=== PATIENT | female | born 1940 | race Caucasian/White ===

== ENCOUNTER → 2016-06-15 | Outpatient (CLI) | payer OTHER, MEDICARE | LOC: BMCIMAGING 09:25 | DX: Z12.31 Encounter for screening mammogram for malignant neoplasm of breast (principal) | CPT/HCPCS: G0202 ==

== ENCOUNTER → 2017-06-19 | Outpatient (CLI) | payer OTHER, MEDICARE | LOC: BMCIMAGING 13:41 | PROVIDERS: ATTEND Internal Medicine | DX: Z12.31 Encounter for screening mammogram for malignant neoplasm of breast (principal); Z13.820 Encounter for screening for osteoporosis; M85.89 Other specified disorders of bone density and structure, multiple sites; E07.9 Disorder of thyroid, unspecified; Z78.0 Asymptomatic menopausal state; Z79.890 Hormone replacement therapy ==

== ENCOUNTER → 2017-08-31 | Outpatient (CLI) | payer OTHER, MEDICARE | LOC: BMCIMAGING 14:12 | PROVIDERS: ATTEND Physician Assistant | DX: M25.562 Pain in left knee (principal) ==

== ENCOUNTER → 2017-09-19 | Outpatient (CLI) | payer OTHER, MEDICARE | LOC: BMCIMAGING 16:31 | PROVIDERS: ATTEND Family Medicine | DX: M79.605 Pain in left leg (principal); M79.89 Other specified soft tissue disorders; Z87.828 Personal history of other (healed) physical injury and trauma ==

== ENCOUNTER → 2017-11-28 | Outpatient (CLI) | payer OTHER, MEDICARE | LOC: FIMAGING 12:03 | PROVIDERS: ATTEND Physical Medicine & Rehabilitation | DX: M23.322 Other meniscus derangements, posterior horn of medial meniscus, left knee (principal); M24.10 Other articular cartilage disorders, unspecified site; M22.42 Chondromalacia patellae, left knee; M71.22 Synovial cyst of popliteal space [Baker], left knee ==

== ENCOUNTER → 2018-02-08 | Outpatient (CLI) | payer OTHER, MEDICARE | LOC: BMCIMAGING 08:23 | PROVIDERS: ATTEND Emergency Medicine | DX: R10.13 Epigastric pain (principal) ==

== ENCOUNTER 2018-03-16 18:56 | Observation (INO) | payer OTHER, MEDICARE ==
[2018-03-16 20:29] LABS: PLATELET COUNT 306 10^3/uL (150-400)
[2018-03-16] MEDS ORDERED: oxyCODONE IR 5 MG TAB PO ONE (20:58)
[2018-03-16] MEDS ORDERED: METHOCARBAMOL 750 MG TAB PO ONE ×2 (20:58→21:01)
[2018-03-16] MEDS ORDERED: ACETAMINOPHEN 500 MG TAB PO ONE ×2 (20:58→21:01)
[2018-03-16] MEDS: ceFAZolin 2 GM/DEXTROSE 100 ML IV ONE ×2 (21:25→22:25)
[2018-03-16] MEDS ORDERED: CLINDAMYCIN 600 MG/DEXTROSE 50 ML IV ONE (21:55)
[2018-03-16] MEDS ORDERED: VANCOMYCIN HCL/NORMAL SALINE 250 ML IV ONE (21:55)
[2018-03-16] MEDS ORDERED: ONDANSETRON 4 MG/2 ML VIAL IVP PRN (22:18)
[2018-03-16] MEDS ORDERED: ONDANSETRON DISINTEGRATING 4 MG TAB PO PRN (22:18)
[2018-03-16] MEDS ORDERED: oxyCODONE IR 5 MG TAB PO PRN (22:18)
[2018-03-16] MEDS ORDERED: ACETAMINOPHEN 325 MG TAB PO PRN (22:18)
--- NOTE | 2018-03-16 23:31 | PDGENHP ---
History and Physical - Chief Complaint L knee redness - History of Present Illness 77 yo F w/ hx of hypothyroid and OA presents with L knee redness. She underwent L TKA on 03/12 at [facility]. She was discharged home on 03/14 without complication. Yesterday, however, she began to notice medial L knee redness. Today she noticed this was worsening so she came to the ED for evaluation. She denies fevers or chills. In the ED her surgeon at [facility] was contacted who recommended admission for IV antibiotics and observation. Dr. Gaines of [place] was consulted who recommended Vancomycin and Clindamycin for treatment. At the time of my evaluation the patient is well appearing and complaining only of mild L knee discomfort. She thinks the redness in her leg has already mildly improved. She is displaying no signs of sepsis at this time. Case discussed with ED YARI Vargas, records reviewed and summarized above. History Information - Allergies/Home Medication List Allergies/Adverse Reactions: meloxicam Allergy (Verified 03/16/18 18:58) Home Medications: Levothyroxine 03/16/18 [Last Taken Unknown] Nexium 03/16/18 [Last Taken Unknown] Percocet 5-325 mg Tablet 03/16/18 [Last Taken Unknown] Xarelto 03/16/18 [Last Taken Unknown] I have personally reviewed and updated: family history, medical history - Past Medical History Additional medical history: Hypothyroid - Surgical History Additional surgical history: L TKA 03/12/18 - Family History Positive for: cancer, CAD - Social History Smoking Status: Never smoked Review of Systems Review of Systems: ROS: 10pt was reviewed & negative except for what was stated in HPI & below Physical Exam Physical Exam: Temp Pulse Resp BP Pulse Ox 36.9 C 88 18 152/78 H 97 03/16/18 23:03 03/16/18 22:30 03/16/18 20:46 03/16/18 22:30 03/16/18 22:30 Constitutional: no apparent distress, uncomfortable Eyes: PERRL, EOMI Ears, Nose, Mouth, Throat: moist mucous membranes, no oral mucosal ulcers Cardiovascular: regular rate and rhythym, no murmur, rub, or gallop Respiratory: no respiratory distress, clear to auscultation Gastrointestinal: normoactive bowel sounds, soft, non-tender abdomen Skin: warm, other (Erythema, warmth medial L knee with proximal extension) Musculoskeletal: full muscle strength, no muscle tenderness, pain with ROM (L knee) Neurologic: AAOx3, CN II-XII Intact Psychiatric: interacting appropriately, not anxious Lab Data & Imaging Review 03/16/18 20:15 03/16/18 20:15 WBC 5.60 10^3/uL (3.80-9.50) 03/16/18 20:15 RBC 2.74 10^6/uL (4.18-5.33) L 03/16/18 20:15 Hgb 7.8 g/dL (12.6-16.3) L 03/16/18 20:15 Hct 23.4 % (38.0-47.0) L 03/16/18 20:15 MCV 85.4 fL (81.5-99.8) 03/16/18 20:15 MCH 28.5 pg (27.9-34.1) 03/16/18 20:15 MCHC 33.3 g/dL (32.4-36.7) 03/16/18 20:15 RDW 12.9 % (11.5-15.2) 03/16/18 20:15 Plt Count 306 10^3/uL (150-400) 03/16/18 20:15 MPV 9.0 fL (8.7-11.7) 03/16/18 20:15 Neut % (Auto) 70.4 % (39.3-74.2) 03/16/18 20:15 Lymph % (Auto) 18.4 % (15.0-45.0) 03/16/18 20:15 [place] % (Auto) 9.6 % (4.5-13.0) 03/16/18 20:15 Eos % (Auto) 0.9 % (0.6-7.6) 03/16/18 20:15 Baso % (Auto) 0.5 % (0.3-1.7) 03/16/18 20:15 Nucleat RBC Rel Count 0.0 % (0.0-0.2) 03/16/18 20:15 Absolute Neuts (auto) 3.94 10^3/uL (1.70-6.50) 03/16/18 20:15 Absolute Lymphs (auto) 1.03 10^3/uL (1.00-3.00) 03/16/18 20:15 Absolute Monos (auto) 0.54 10^3/uL (0.30-0.80) 03/16/18 20:15 Absolute Eos (auto) 0.05 10^3/uL (0.03-0.40) 03/16/18 20:15 Absolute Basos (auto) 0.03 10^3/uL (0.02-0.10) 03/16/18 20:15 Absolute Nucleated RBC 0.00 10^3/uL (0-0.01) 03/16/18 20:15 Immature Gran % 0.2 % (0.0-1.1) 03/16/18 20:15 Immature Gran # 0.01 10^3/uL (0.00-0.10) 03/16/18 20:15 ESR 38 MM/HR (0-30) H 03/16/18 20:15 Sodium 133 mEq/L (135-145) L 03/16/18 20:15 Potassium 3.6 mEq/L (3.5-5.2) 03/16/18 20:15 Chloride 103 mEq/L (97-110) 03/16/18 20:15 Carbon Dioxide 24 mEq/l (22-31) 03/16/18 20:15 Anion Gap 6 mEq/L (6-14) 03/16/18 20:15 BUN 14 mg/dL (7-23) 03/16/18 20:15 Creatinine 0.8 mg/dL (0.6-1.0) 03/16/18 20:15 Estimated GFR > 60 03/16/18 20:15 Glucose 127 mg/dL (70-100) H 03/16/18 20:15 Calcium 8.3 mg/dL (8.5-10.4) L 03/16/18 20:15 C-Reactive Protein 218.5 mg/L (<10.0) H 03/16/18 20:15 Imaging Review: Imaging Impressions Knee X-Ray 03/16/18 19:40 Impression: 1. Left total knee replacement in good position and alignment. 2. Soft tissue swelling around the left knee without evidence of gas. Assessment & Plan Assessment: 77 yo F w/ recent L TKA presents with cellulitis. Plan: 1. L knee cellulitis - S/p L TKA at [facility] on 03/12/18. She has no systemic symptoms of infection at this time including normal WBC. Her surgeons at [facility] were contacted who recommended admission at [facility] for IV antibiotics. - Admit for observation - ID consulted, Vancomycin and Clindamycin ordered per their recommendation - Blood cultures pending - APAP, Oxycodone PRN for pain 2. OA - S/p L TKA at [facility] on 03/12/18. On Xarelto 10 mg qD for DVT prophylaxis. - Continue prophylactic dose Xarelto pending reconciliation 3. Normocytic anemia - Hgb 7.8 on admission; per review of [facility] last Hgb on at time of discharge from [facility] was 9.7. Our records show Hgb was normal prior to surgery so likely a large part of this is due to blood loss from surgery. The patient tells me she had a drain in place after surgery with significant bloody discharge. She denies other signs of blood loss. - Will check ferritin to look for iron deficiency - Transfuse for Hgb<7 4. Hypothyroid - Continue LTX pending reconciliation Diet - Regular Code - Full Ppx - SCDs, Xarelto Dispo - Admit under observation status
--- NOTE | 2018-03-17 00:10 | EDPHY ---
H & P Stated Complaint: redness at incision site L knee surgery 4 days ago [facility] Time Seen by Provider: 03/16/18 19:11 HPI/ROS: Chief complaint: Possible infection at surgical site History of present illness: This is a 77-year-old female who presents to the emergency department concerned she might be developing an infection and a surgical site. Patient underwent a total left knee arthroplasty this last Sunday, approximately 5 days ago. She was discharged on . She states yesterday she developed some mild redness. Today a worsened. She presents to the emergency room for evaluation. In addition to redness or is mild soreness. She does not feel the pain the site of surgery has significantly changed from what she was feeling postoperatively. No report of fevers. No abnormal coolness or paresthesias in the leg. Review of systems: A 10 point review of systems was obtained and other than described above was negative - Medical/Surgical History Hx Asthma: No Hx Chronic Respiratory Disease: No Hx Diabetes: No Hx Cardiac Disease: No Hx Renal Disease: No Hx Cirrhosis: No Hx Alcoholism: No Hx HIV/AIDS: No Hx Splenectomy or Spleen Trauma: No Other PMH: hysterectomy, hypothyroid, skin ca, TKA, TIA - Social History Smoking Status: Never smoked - Physical Exam Exam: General Appearance: Alert, nontoxic. Eyes: Pupils equal and round no pallor or injection. ENT, Mouth: Mucous membranes moist. Respiratory: There are no retractions, lungs are clear to auscultation. Cardiovascular: Regular rate and rhythm. Gastrointestinal: Abdomen is soft and non tender, no masses, bowel sounds normal. Neurological: Alert and oriented x4. Sensation intact in the left leg. Skin: Surgical incision site does not have significant discharge. No dehiscence. There is mild erythema extending medially from the wound site to the medial aspect of the knee and up into the medial thigh. Mild warmth and tenderness. No induration or fluctuance. Musculoskeletal: Neck is supple non tender. Extremities are symmetrical, full range of motion. Psychiatric: Patient is oriented X 3, there is no agitation. Constitutional: Initial Vital Signs Temperature (C) 36.5 C 03/16/18 19:01 Heart Rate 81 03/16/18 19:01 Respiratory Rate 16 03/16/18 19:01 Blood Pressure 172/85 H 03/16/18 19:01 O2 Sat (%) 95 12/22/18 19:01 O2 Delivery Mode Room Air Allergies/Adverse Reactions: meloxicam Allergy (Verified 03/16/18 18:58) Home Medications: Medication Instructions Recorded Levothyroxine 03/16/18 Nexium 03/16/18 Percocet 5-325 mg Tablet 03/16/18 Xarelto 03/16/18 Medical Decision Making - Diagnostics Imaging Results: Imaging Impressions Knee X-Ray 03/16/18 19:40 Impression: 1. Left total knee replacement in good position and alignment. 2. Soft tissue swelling around the left knee without evidence of gas. Imaging: I viewed and interpreted images myself ED Course/Re-evaluation: Patient is discussed with my secondary supervising physician Dr. Lei Mei. Patient presents with redness and swelling status post a left total knee arthroplasty. She does appear to have a cellulitis. I have consulted with the on-call orthopedic surgeon at [facility] where the procedure was done, Dr. Perdomo. He recommended CBC, chemistry, CRP, ESR and x-ray. After evaluation he recommends admission to this hospital for IV antibiotics. He does not recommend that we tap the knee this evening. I did send pictures of the findings to him at his request by personal phone. This had been discussed with the patient prior to sending the photos, she reviewed the photos and was comfortable with them being sent this way. No identifying information was sent with them. I have consulted with Dr. Rigo Gaines of Infectious Disease, he recommends 1 g of vancomycin and 600 mg of clindamycin IV for initial treatment. He will consult on this patient. The plan has been discussed with the patient who voiced understanding and agreement with it. Differential Diagnosis: Included but not limited to cellulitis, surgical wound infection, joint infection - Data Points Laboratory Results: Laboratory Results 03/16/18 20:15 03/16/18 20:15 03/16/18 03/16/18 03/16/18 20:15 20:15 20:15 WBC 5.60 10^3/uL 10^3/uL (3.80-9.50) RBC 2.74 10^6/uL L 10^6/uL (4.18-5.33) Hgb 7.8 g/dL L g/dL (12.6-16.3) Hct 23.4 % L % (38.0-47.0) MCV 85.4 fL fL (81.5-99.8) MCH 28.5 pg pg (27.9-34.1) MCHC 33.3 g/dL g/dL (32.4-36.7) RDW 12.9 % % (11.5-15.2) Plt Count 306 10^3/uL 10^3/uL (150-400) MPV 9.0 fL fL (8.7-11.7) Neut % (Auto) 70.4 % % (39.3-74.2) Lymph % (Auto) 18.4 % % (15.0-45.0) [place] % (Auto) 9.6 % % (4.5-13.0) Eos % (Auto) 0.9 % % (0.6-7.6) Baso % (Auto) 0.5 % % (0.3-1.7) Nucleat RBC Rel Count 0.0 % % (0.0-0.2) Absolute Neuts (auto) 3.94 10^3/uL 10^3/uL (1.70-6.50) Absolute Lymphs (auto) 1.03 10^3/uL 10^3/uL (1.00-3.00) Absolute Monos (auto) 0.54 10^3/uL 10^3/uL (0.30-0.80) Absolute Eos (auto) 0.05 10^3/uL 10^3/uL (0.03-0.40) Absolute Basos (auto) 0.03 10^3/uL 10^3/uL (0.02-0.10) Absolute Nucleated RBC 0.00 10^3/uL 10^3/uL (0-0.01) Immature Gran % 0.2 % % (0.0-1.1) Immature Gran # 0.01 10^3/uL 10^3/uL (0.00-0.10) ESR 38 MM/HR H MM/HR (0-30) Sodium 133 mEq/L L mEq/L (135-145) Potassium 3.6 mEq/L mEq/L (3.5-5.2) Chloride 103 mEq/L mEq/L (97-110) Carbon Dioxide 24 mEq/l mEq/l (22-31) Anion Gap 6 mEq/L mEq/L (6-14) BUN 14 mg/dL mg/dL (7-23) Creatinine 0.8 mg/dL mg/dL (0.6-1.0) Estimated GFR > 60 Glucose 127 mg/dL H mg/dL (70-100) Calcium 8.3 mg/dL L mg/dL (8.5-10.4) Ferritin 62.3 ng/mL ng/mL (6.2-264.0) C-Reactive Protein 218.5 mg/L H mg/L (<10.0) Medications Given: Discontinued Medications Acetaminophen (Tylenol) 1,000 mg PO EDNOW ONE Stop: 03/16/18 21:02 Last Admin: 03/16/18 21:13 Dose: 1,000 mg Cefazolin Sodium/Dextrose (Ancef) 100 mls @ 200 mls/hr IV EDNOW ONE PRN Reason: Protocol Stop: 03/16/18 21:34 Last Admin: 03/16/18 22:25 Dose: Not Given Clindamycin Phosphate/Dextrose (Cleocin 600 Mg (Premix)) 50 mls @ 100 mls/hr IV EDNOW ONE PRN Reason: Protocol Stop: 03/16/18 22:24 Last Admin: 03/16/18 22:29 Dose: 50 mls Vancomycin/Sodium Chloride (Vancomycin 1 Gm (Premix)) 250 mls @ 250 mls/hr IV EDNOW ONE PRN Reason: Protocol Stop: 03/16/18 22:54 Last Admin: 03/16/18 22:58 Dose: 250 mls Methocarbamol (Robaxin) 500 mg PO EDNOW ONE Stop: 03/16/18 21:02 Last Admin: 03/16/18 21:13 Dose: 500 mg Oxycodone HCl (Oxycodone Ir) 5 mg PO EDNOW ONE Stop: 03/16/18 20:59 Last Admin: 03/16/18 21:13 Dose: 5 mg Departure - Departure Disposition: [facility] Acute Clinical Impression: Cellulitis Qualifiers: Site of cellulitis: extremity Site of cellulitis of extremity: lower extremity Laterality: left Qualified Code(s): L03.116 - Cellulitis of left lower limb Condition: Fair
[2018-03-17 05:48] LABS: PLATELET COUNT 315 10^3/uL (150-400)
[2018-03-17] MEDS ORDERED: CLINDAMYCIN 600 MG/DEXTROSE 50 ML IV SCH (06:00)
[2018-03-17] MEDS ORDERED: LEVOTHYROXINE 50 MCG TAB PO ONE (06:00)
[2018-03-17] MEDS ORDERED: RANITIDINE SYRUP 15 MG/1 ML UDSYR PO ONE (06:00)
[2018-03-17] MEDS ORDERED: PANTOPRAZOLE SODIUM 40 MG TAB PO ONE (06:02)
[2018-03-17 07:38] VITALS: BP 150/61
--- NOTE | 2018-03-17 10:06 | ASMTCMCOM ---
CM Note CM Note Notes: Chart reviewed for discharge plan of care. 77 year old female admitted via ED for complaints of increasing erythema of left knee surgical site . She is admitted and treated with ANTB. Need to be determined. Plan: TBD Date Signed: 03/17/2018 10:06 AM Electronically Signed By:Renee Hopkins RN
[2018-03-17] MEDS ORDERED: oxyCODONE IR 5 MG TAB PO PRN (12:10)
--- NOTE | 2018-03-17 12:11 | ASDISCHSUM ---
Discharge Information Plan Status:Home with No Needs Medically Cleared to Leave:03/16/2018 Discharge Date:03/16/2018 CM D/C Disposition:Home, Routine, Self-Care ADT D/C Disposition:Home, Routine, Self-Care Projected Discharge Date:03/16/2018 Transportation at D/C: Discharge Delay Reason: Follow-Up Date:03/16/2018 Discharge Slot: Final Diagnosis: Placement Information Patient Contact Information Contact Name:JERMAINE Relationship:Gwyn Address:[address] Work Phone: City:[place] Alternate Phone: [facility]/Zip Code:[place] [address] Email: Financial Information Financial Class:Medicare Primary Plan Desc:MEDICARE INPATIENT Primary Plan Number:[id number] Secondary Plan Desc:[employer]ARP/MDR SUPPLEMENT Secondary Plan Number:[id number] Assessment Information [facility] CM Progress Note CM Note CM Note Notes: Chart reviewed for discharge plan of care. 77 year old female admitted via ED for complaints of increasing erythema of left knee surgical site . She is admitted and treated with ANTB. Need to be determined. Plan: TBD Date Signed: 03/17/2018 10:06 AM Electronically Signed By:Renee Hopkins RN Intervention Information Intervention Type:*Incorrect Registration Date of Service:03/17/2018 07:33 AM Patient Type:Inpatient Staff Member:KRYSTINA Zayas, Lizz Hours: Discipline: Severity: Comment:
--- NOTE | 2018-03-17 12:12 | GCON ---
INFECTIOUS DISEASE CONSULTATION DATE OF CONSULTATION: 03/17/2018 REFERRING PHYSICIAN: KIESHA Oreilly REASON FOR CONSULTATION: Postoperative knee infection. HISTORY OF PRESENT ILLNESS: The patient is a 77-year-old female who underwent left total knee arthro plasty on 03/12/2018, at the [facility] who I am now asked to see in consultation for pos toperative knee infection. Patient describes developing erythema around the knee yesterday with subs equent spread to the medial thigh. This was associated with erythema and tenderness. She did not frank ve associated fever, chills, or night sweats. There was no knee drainage. She has been progressing with her physical therapy well. She notes that when she is standing or using her knee that there is less associated pain. Yesterday, she was seen in the emergency department and noted to have a cellul itis, which was felt to be progressing to the upper thigh over a short period of time. She was given a dose of cefazolin and I was notified for additional antibiotic recommendations. I recommended sta rting vancomycin and clindamycin based on progressive spread of erythema. Today, patient notes that the erythema is markedly decreased. She has been able to ambulate around t nursing unit and also on the stairs with physical therapy. She does not have significant pain wit h ambulation. Laboratory evaluation revealed a normal white blood cell count with a significantly elevated C-reacti ve protein. Blood cultures were obtained and are currently pending. Knee aspiration was not perform ed. The patient has not noted any inguinal pain or adenopathy. Given the above findings, I am now a sked to assist in her ongoing management. PAST MEDICAL HISTORY: Hypothyroidism, gastritis, prior postoperative infections at time of Dupuytren contracture surgery and hysterectomy, TIA. PAST SURGICAL HISTORY: Left total knee arthroplasty as outlined above, hysterectomy. CURRENT MEDICATIONS: Vancomycin 1 g IV q.24 hours, clindamycin 600 mg IV q.8 hours, cefazolin 2 g IV x1, Oxy IR as needed for pain. ALLERGIES: Meloxicam associated with rash. SOCIAL HISTORY: Patient does not smoke or drink alcohol. FAMILY HISTORY: Stroke, coronary artery disease. REVIEW OF SYSTEMS: Outside that noted in the HPI, the remainder of 10-system review is unremarkable. PHYSICAL EXAMINATION: VITAL SIGNS: Temperature 36.8, heart rate 95, respiratory rate 16, blood pres sure 150/61, oxygen saturation 99% on room air. GENERAL: Patient is well nourished, well developed, in no acute distress. She appears nontoxic. HEENT: There is no scleral icterus, conjunctival inje ction, or conjunctival petechiae. Oropharynx is clear without lesions. Dentition is in good repair. Mucous membranes are moist. There is no nasal discharge or sinus tenderness. NECK: Supple withou t palpable lymphadenopathy or thyromegaly. CHEST: Clear to auscultation bilaterally without adventi tious sounds. The respiratory effort is normal. CARDIOVASCULAR: Regular rate and rhythm without mu rmurs, gallops, or rubs. ABDOMEN: Soft, nontender, nondistended. There is no palpable organomegaly . Bowel sounds are present. MUSCULOSKELETAL: The left knee shows an intact incision line with appr oximately 3 to 4 cm patch of erythema over the medial aspect inferior to the incision. This is adjac ent to a slightly larger area of ecchymoses. Erythema from previously demarcated lines has fully res olved. There is mild tenderness with range of motion of the knee. Postoperative edema as expected w ithout significant knee effusion present. SKIN: No significant findings other than that outlined un patel left lower extremity. No stigmata of endocarditis. The skin is warm and dry to touch. LYMPHATI CS: No cervical or supraclavicular nodes. No left inguinal adenopathy or lymphangitis. NEUROLOGIC: Patient is alert and interacts appropriately with examiner. Cranial nerves 2 through 12 are grossl y intact. Sensation is grossly intact. Muscle tone and bulk are normal. LABORATORY/IMAGING: White blood cell count 4.9, hematocrit 24.6, platelets 315, neutrophils 66%, lym phocytes 21%. ESR 38, CRP 219, creatinine 0.7. Blood cultures x2 sets are pending. Knee x-ray shows good position and alignment of left total knee arthroplasty. IMPRESSION: Postoperative knee infection, status post recent left total knee arthroplasty: Given th e rapidity of onset relative to recent surgical procedure and rapidity of response to antibiotic ther apy, suspect this is most likely due to beta-hemolytic streptococci. Staphylococcus aureus is a cons ideration, although I suspect will be less likely. Methicillin-resistant Staphylococcus aureus posto peratively is also a consideration, although given absence of purulence, suspect will be less likely. Given the patient's rapid response to antibiotics and ability to ambulate without difficulty, I thi nk joint involvement is of lower likelihood. This will be best defined over time if symptoms recur i n the setting of ongoing antibiotics or after discontinuation of antibiotic therapy. Given clinical findings, I think can transition to oral antibiotic therapy to complete treatment course with ongoing assessment to antibiotic therapy. Will provide ceftriaxone 2 g IV x1 prior to discharge for another 24 hours of intravenous equivalent therapy; thereafter will treat with Augmentin 875 mg orally twice daily x7 days. RECOMMENDATIONS: 1. Ceftriaxone 2 g IV x1. 2. Transition to Augmentin 875 mg orally twice daily x7 days thereafter. 3. Discontinue vancomycin, clindamycin. 4. Clinical findings and plan discussed with patient's family and son who is a surgeon by telephone, including ongoing plan of care. 5. Notify me for fever, chills, increasing redness, knee drainage, or inability to bear weight. 6. If signs and symptoms of infection recur, then would have an increased concern about potential sidney int involvement, which would necessitate incision and drainage. Thank you for this consultation. /[id number]/MODL
--- NOTE | 2018-03-17 12:17 | ASMTLACE ---
TYS[facility] Length of stay for Answers: 1 day current admission Acuity / Level of Answers: Yes Care: Did the patient have an inpatient admission? Comorbidities - select Answers: Other Notes: osteoarthritis all that apply # of Emergency department Answers: 1-2 visits in the last 6 months Score: 6 Date Signed: 03/17/2018 12:16 PM Electronically Signed By:Renee Hopkins RN
--- NOTE | 2018-03-17 12:20 | ASMTDCNOTE ---
Case Management Discharge Discharge Order Complete? Answers: Yes Patient to Obtain Answers: Independently Medications Transportation Arranged Answers: Family/Friends Family Notified Answers: Yes Discharge Comments Notes: Chart reviewed. Patient has been medically cleared for discharge to home. No current needs identified. Date Signed: 03/17/2018 12:19 PM Electronically Signed By:Renee Hopkins RN
--- NOTE | 2018-03-17 14:20 | GDS ---
ALL DIAGNOSES: 1. Cellulitis. 2. Recent total knee arthroplasty at the [facility] on 03/12/2018. 3. Osteoarthritis. 4. Normocytic anemia. 5. Hypothyroid. HOSPITAL COURSE: A 77-year-old female with a recent left-sided TKA presented with likely cellulitis. She was placed on clindamycin, had very marked good response to this overnight with almost near res olution of her erythema. There is still a small segment on the medial side of her left knee. She is able to do stairs, thus septic arthritis seems less likely. She has been seen by Infectious Disease who recommends a course of Augmentin. We suspect that the etiologic agent is likely strep given the rapidity of onset, as well as the rapidity of resolution. She has been given strict return precautions if this gets worse. She has also been warned to re-pres ent if her infection recurs after the completed course of antibiotics. She understands all this. Heriberto johnson is discharged in stable condition. She has been placed on Augmentin as above for an additional 6 d ays. FOLLOWUP: 1. Dr. Gaines as needed. 2. Orthopedic surgeon at [facility]. /[id number]/MODL
[2018-03-17] MEDS ORDERED: VANCOMYCIN HCL/NORMAL SALINE 250 ML IV SCH (23:00)
== END 2018-03-17 12:33 | disposition home or self-care (01) ==
LOC: INTOOBSV 22:13 → F3N 23:15
PROVIDERS: ADMIT Student in an Organized Health Care Education/Training Program; ATTEND Student in an Organized Health Care Education/Training Program
DX: T81.41XA Infection following a procedure, superficial incisional surgical site, initial encounter (principal); L03.116 Cellulitis of left lower limb; Z96.652 Presence of left artificial knee joint; M17.12 Unilateral primary osteoarthritis, left knee; D64.9 Anemia, unspecified; E03.9 Hypothyroidism, unspecified; Y82.9 Unspecified medical devices associated with adverse incidents
CPT/HCPCS: 73562; 97110; 97116; 97161; G0378; G8978; G8979; J0690; J0696; J3370; 96374

== ENCOUNTER 2018-05-16 11:53 | Emergency (ER) | payer OTHER, MEDICARE ==
[2018-05-16 12:53] LABS: PLATELET COUNT 351 10^3/uL (150-400)
--- NOTE | 2018-05-16 13:08 | EDPHY ---
HPI/HX/ROS/PE/MDM Narrative: CHIEF COMPLAINT: "I think I've had the flu" HPI: The patient is a 78 y/o female complaining of cough, myalgias, and now resolved fever of 102F over the last week. Today her fever has abated, but she continues to have a frequent cough that makes her gag sometimes. She also developed diarrhea today. She tried Mucinex one day, but didn't feel improved and stopped using it. She has not tried any other medications for symptoms. She additionally reports ongoing generalized abdominal pain for the last several months since December that makes it difficult for her to eat. She did get a flu vaccination this season. REVIEW OF SYSTEMS: A comprehensive 10 system review of systems is otherwise negative aside from elements mentioned in the history of present illness. 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 SOCIAL HISTORY: Active, works out every day. PCP: Dr. Alexander PHYSICAL EXAM: General:Patient is alert, in no acute distress. ENT:Eyes are normal to inspection. ENT inspection normal. Neck: Normal inspection. Full range of motion. Respiratory:No respiratory distress. Breath sounds normal bilaterally. Cardiovascular: Regular rate and rhythm. Strong peripheral pulses. Normal cap refill. Abdomen:The abdomen is nontender to palpation. There are no peritoneal signs. Back: Normal to inspection. No tenderness to palpation. Skin: Normal color. No rash. Warm and dry. Extremities: Normal appearance. Full range of motion. Neuro: Oriented x3. Normal motor function. Normal sensory function. ED Course: 78 y/o female who presents with a one-week history of cough, myalgias, and fever. She coughs frequently, but otherwise has a normal exam. She is not hypoxemic. Symptoms consistent with upper respiratory illness. Plan for IV, labs , flu swab, UA, chest x-ray. Chest x-ray: no infiltrate Flu A+. Labs otherwise unremarkable. Reevaluated patient and discussed findings. Plan for discharge home with standard influenza care and follow up instructions. She's also been referred to GI regarding her chronic abdominal issues. Return precautions discussed. She is comfortable with this plan. - Data Points Imaging Results: Imaging Impressions Chest X-Ray 05/16/18 12:05 Impression: No acute findings in the chest. Imaging: I viewed and interpreted images myself Laboratory Results: Laboratory Results 05/16/18 12:35 02/21/19 12:35 05/16/18 05/16/18 05/16/18 13:27 12:35 12:35 WBC 2.64 10^3/uL L 10^3/uL (3.80-9.50) RBC 4.53 10^6/uL 10^6/uL (4.18-5.33) Hgb 11.7 g/dL L g/dL (12.6-16.3) Hct 37.9 % L % (38.0-47.0) MCV 83.7 fL fL (81.5-99.8) MCH 25.8 pg L pg (27.9-34.1) MCHC 30.9 g/dL L g/dL (32.4-36.7) RDW 14.2 % % (11.5-15.2) Plt Count 351 10^3/uL 10^3/uL (150-400) MPV 8.6 fL L fL (8.7-11.7) Neut % (Auto) 53.8 % % (39.3-74.2) Lymph % (Auto) 34.8 % % (15.0-45.0) [place] % (Auto) 10.2 % % (4.5-13.0) Eos % (Auto) 0.8 % % (0.6-7.6) Baso % (Auto) 0.4 % % (0.3-1.7) Nucleat RBC Rel Count 0.0 % % (0.0-0.2) Absolute Neuts (auto) 1.42 10^3/uL L 10^3/uL (1.70-6.50) Absolute Lymphs (auto) 0.92 10^3/uL L 10^3/uL (1.00-3.00) Absolute Monos (auto) 0.27 10^3/uL L 10^3/uL (0.30-0.80) Absolute Eos (auto) 0.02 10^3/uL L 10^3/uL (0.03-0.40) Absolute Basos (auto) 0.01 10^3/uL L 10^3/uL (0.02-0.10) Absolute Nucleated RBC 0.00 10^3/uL 10^3/uL (0-0.01) Immature Gran % 0.0 % % (0.0-1.1) Immature Gran # 0.00 10^3/uL 10^3/uL (0.00-0.10) Sodium 134 mEq/L L mEq/L (135-145) Potassium 3.9 mEq/L mEq/L (3.5-5.2) Chloride 103 mEq/L mEq/L (97-110) Carbon Dioxide 21 mEq/l L mEq/l (22-31) Anion Gap 10 mEq/L mEq/L (6-14) BUN 18 mg/dL mg/dL (7-23) Creatinine 0.7 mg/dL mg/dL (0.6-1.0) Estimated GFR > 60 Glucose 116 mg/dL H mg/dL (70-100) Calcium 9.1 mg/dL mg/dL (8.5-10.4) Nasal Influenza A PCR FLU A DETECTED H (NEGATIVE) Nasal Influenza B PCR NEGATIVE FOR FLU B (NEGATIVE) Medications Given: Discontinued Medications Albuterol/Ipratropium (Duoneb) 3 ml IH EDNOW ONE Stop: 05/16/18 13:20 Last Admin: 05/16/18 13:45 Dose: 3 ml General Time Seen by Provider: 05/16/18 12:33 Initial Vital Signs: Initial Vital Signs Temperature (C) 36.7 C 05/16/18 12:17 Heart Rate 94 05/16/18 12:17 Respiratory Rate 18 05/16/18 12:17 Blood Pressure 124/91 H 05/16/18 12:17 O2 Sat (%) 96 05/16/18 12:17 O2 Delivery Mode Room Air Allergies/Adverse Reactions: meloxicam Allergy (Verified 05/16/18 12:17) Home Medications: Medication Instructions Recorded Estradiol 0.5 mg PO DAILY 03/17/18 Levothyroxine Sodium 50 mcg PO DAILY@06 03/17/18 Benzonatate [Tessalon Pearles (RX)] 100 mg PO TID PRN #15 cap 05/16/18 HYDROcodone/HOMATROPINE HYCODA 1 tsp PO Q4-6PRN PRN #120 ml 05/16/18 [Hycodan Syrup (RX)] Oseltamivir Phosphate [Tamiflu 75 75 mg PO BID 5 Days cap 02/21/19 mg (RX)] traMADol 05/16/18 Departure - Departure Disposition: Home, Routine, Self-Care Clinical Impression: Influenza A Condition: Good Instructions: Influenza (ED) Additional Instructions: 1. Tylenol and ibuprofen as directed for fever and pain over the next few days. 2. Cover your cough and wash your hands frequently to prevent spread of infection to others. Limit interaction with others while ill. You are likely still contagious for several days after symptoms have resolved. 3. Use Tessalon Perls as prescribed for cough. 4. Use Hycodan syrup as prescribed for cough. This medication contains a narcotic and can make you drowsy and constipated. Do not use prior to driving. 5. Increase fluid intake. 6. Follow up with your primary care provider as needed. 7. 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 You've been referred to Dr. Charles locally. Adult Pain & Fever Control: We recommend Acetaminophen (Tylenol) and Ibuprofen (Motrin,Advil) for pain and fever control. When fever is high or pain severe, both drugs can be used at the same time, but at different intervals. Please note the time differences. Your dose is: Acetaminophen 650mg every 4 to 6 hours Ibuprofen 600mg every 8 hours with food Note: do not take Acetaminophen with Hydrocodone (Vicodin, Lortab) or Oxycodone (Percocet). These medications also contain Acetaminophen. No more than 3000mg of Acetaminophen should be taken in 24 hours (for an adult). Referrals: Radha Alexander MD [Primary Care Provider] - As per Instructions Leilani Charles MD [Medical Doctor] - As per Instructions Prescriptions: Benzonatate [Tessalon Pearles (RX)] 100 mg PO TID PRN #15 cap PRN Reason: Cough, Severe HYDROcodone/HOMATROPINE HYCODA [Hycodan Syrup (RX)] 1 tsp PO Q4-6PRN PRN #120 ml PRN Reason: Cough, Severe Oseltamivir Phosphate [Tamiflu 75 mg (RX)] 75 mg PO BID 5 Days cap Report Scribed for: Lionel Heaton Report Scribed by: Sonja Kline Date of Report: 05/16/18 Time of Report: 13:08 Physician Review and Approval Statement: Portions of this note were transcribed by an ED scribe. I personally performed the history, physical exam, and medical decision making; and confirm the accuracy of the information in the transcribed note.
[2018-05-16] MEDS ORDERED: IPRATROPIUM/ALBUTEROL 3 ML DEYVIAL IH ONE (13:19)
[2018-05-16 14:57] VITALS: BP 118/71
== END 2018-05-16 15:01 | disposition home or self-care (01) ==
DX: J10.1 Influenza due to other identified influenza virus with other respiratory manifestations (principal)

== ENCOUNTER 2018-05-22 18:43 | Inpatient (IN) | payer OTHER, MEDICARE ==
[2018-05-22] MEDS ORDERED: NS 1,500 ML IV ONE (19:08)
[2018-05-22] MEDS ORDERED: ONDANSETRON 4 MG/2 ML VIAL IVP ONE (19:08)
--- NOTE | 2018-05-22 19:16 | EDPHY ---
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 Denies bleeding Time Seen by Provider: 05/22/18 18:58 HPI/ROS: CHIEF COMPLAINT: Intractable vomiting HISTORY OF PRESENT ILLNESS: 78-year-old female with up-to-date influenza vaccination was seen the ER few days ago for complaints of flu-like symptoms, diagnosed with influenza a, started on Tamiflu. She returns to the ER via private vehicle with complaining of intractable vomiting for the past 24 hr. She has been compliant with her Tamiflu as well as Tylenol. She denies : Chest pain, dyspnea, headache, abdominal pain, diarrhea, melena, hematochezia , hematemesis REVIEW OF SYSTEMS: 10 systems reviewed and negative with the exception of the elements mentioned in the history of present illness PAST MEDICAL & SURGICAL HISTORY: Up-to-date with seasonal influenza vaccination SOCIAL HISTORY: nonsmoker. PHYSICAL EXAM (Prior to examination, patient consented to physical exam, hands were washed and my usual and customary physical exam procedures followed) 1) GENERAL: Well-developed, well-nourished, alert and oriented.. 2) HEAD: Normocephalic, atraumatic 3) HEENT: Pupils equal, round, reactive to light bilaterally. Sclera anicteric. Nasopharynx, oropharynx, clear, no lesions. Dry mucous membranes. Ears bilaterally with normal tympanic membranes. 4) NECK: Full range of motion, no meningeal signs. 5) LUNGS: Clear auscultation bilaterally, no wheezes, no rhonchi, no retractions. 6) HEART: Regular rate and rhythm, no murmur, no heave, no gallop. 7) ABDOMEN: No guarding, no rebound, no focal tenderness, negative McBurney's, negative Brewer's, negative Rovsing's, negative peritoneal sign, 8) MUSCULOSKELETAL: Moving all extremities, no focal areas of tenderness, no obvious trauma. No peripheral edema or discoloration. 9) BACK: No CVA tenderness, no midline vertebral tenderness, no fluctuance, no step-off, no obvious trauma, no visual or palpable abnormality. 10) SKIN: No rash, no petechiae. 11) Psychiatric: Patient is oriented X 3, there is no agitation. DIFFERENTIAL DIAGNOSIS: With no particular order including but not limited to volume depletion, pneumonia, gastroenteritis - Personal History Current Tetanus/Diphtheria Vaccine: Yes - Medical/Surgical History Hx Asthma: No Hx Chronic Respiratory Disease: No Hx Diabetes: No Hx Cardiac Disease: No Hx Renal Disease: No Hx Cirrhosis: No Hx Alcoholism: No Hx HIV/AIDS: No Hx Splenectomy or Spleen Trauma: No Other PMH: hysterectomy, hypothyroid, skin ca, TKA, TIA - Social History Smoking Status: Never smoked Constitutional: Initial Vital Signs Temperature (C) 37.6 C 05/22/18 18:47 Heart Rate 124 H 05/22/18 18:47 Respiratory Rate 18 05/22/18 18:47 Blood Pressure 177/81 H 05/22/18 18:47 O2 Sat (%) 95 05/22/18 18:47 O2 Delivery Mode Room Air Allergies/Adverse Reactions: meloxicam Allergy (Verified 05/22/18 18:47) scallops Allergy (Verified 05/22/18 20:08) Vomiting Home Medications: Medication Instructions Recorded Estradiol 0.5 mg PO DAILY 03/17/18 Levothyroxine Sodium 50 mcg PO DAILY@06 03/17/18 HYDROcodone/HOMATROPINE HYCODA 1 tsp PO Q4-6PRN PRN #120 ml 05/16/18 [Hycodan Syrup (RX)] traMADol [Ultram 50 mg (*)] 50 mg PO HS PRN 05/16/18 Aspirin EC [Aspirin EC 81 mg (*)] 81 mg PO DAILY 05/22/18 Cholecalciferol Vit D3 [Vitamin D3 2,000 units PO DAILY 05/22/18 (*)] Herbals/Supplements -Info Only 1 ea PO DAILY 05/22/18 Triamcinolone 0.1% [Triamcinolone 1 lindsay TD DAILY PRN 05/22/18 0.1% Cream (*)] Medical Decision Making - Diagnostics Imaging Results: Imaging Impressions Chest X-Ray 05/22/18 19:06 Impression: 1. Possible focal alveolar infiltrate left lower lobe posteriorly. Images myself ED Course/Re-evaluation: 7:10 p.m.: I reviewed the patient's old medical record. Discussed case with secondary supervising physician Dr. Lei Mei in the ER. Patient has dry mucous membranes, tachycardic 124 beats per minute. Anticipate more than likely admission. Will check laboratory studies, administer antiemetic and IV fluids. 7:30 p.m.: Patient's lactate 2.2. Severe sepsis declared at this time. She is currently receiving IV fluids, will repeat lactate. Discussed with Dr Mei 7:40 p.m.: Patient's chest x-ray interpreted by staff radiologist shows a possible left lower lobe infiltrate. She will be given dose of Levaquin in the ER, will plan on admission to hospitalist service. 7:54 p.m.: Consultation with hospitalist Dr. Peetrson who will admit patient. - Data Points Laboratory Results: Laboratory Results 05/22/18 19:00 05/22/18 19:00 05/22/18 05/22/18 05/22/18 19:00 19:00 19:00 WBC 8.23 10^3/uL 10^3/uL (3.80-9.50) RBC 4.86 10^6/uL 10^6/uL (4.18-5.33) Hgb 12.5 g/dL L g/dL (12.6-16.3) Hct 39.8 % % (38.0-47.0) MCV 81.9 fL fL (81.5-99.8) MCH 25.7 pg L pg (27.9-34.1) MCHC 31.4 g/dL L g/dL (32.4-36.7) RDW 14.0 % % (11.5-15.2) Plt Count 477 10^3/uL H 10^3/uL (150-400) MPV 9.0 fL fL (8.7-11.7) Neut % (Auto) 88.2 % H % (39.3-74.2) Lymph % (Auto) 6.1 % L % (15.0-45.0) [place] % (Auto) 5.0 % % (4.5-13.0) Eos % (Auto) 0.4 % L % (0.6-7.6) Baso % (Auto) 0.1 % L % (0.3-1.7) Nucleat RBC Rel Count 0.0 % % (0.0-0.2) Absolute Neuts (auto) 7.26 10^3/uL H 10^3/uL (1.70-6.50) Absolute Lymphs (auto) 0.50 10^3/uL L 10^3/uL (1.00-3.00) Absolute Monos (auto) 0.41 10^3/uL 10^3/uL (0.30-0.80) Absolute Eos (auto) 0.03 10^3/uL 10^3/uL (0.03-0.40) Absolute Basos (auto) 0.01 10^3/uL L 10^3/uL (0.02-0.10) Absolute Nucleated RBC 0.00 10^3/uL 10^3/uL (0-0.01) Immature Gran % 0.2 % % (0.0-1.1) Immature Gran # 0.02 10^3/uL 10^3/uL (0.00-0.10) RBC/WBC/PLT Morphology TNP Platelet Estimate TNP PT 12.5 SEC SEC (12.0-15.0) INR 0.97 (0.83-1.16) APTT 25.7 SEC SEC (23.0-38.0) VBG Lactic Acid Sodium 133 mEq/L L mEq/L (135-145) Potassium 3.9 mEq/L mEq/L (3.5-5.2) Chloride 98 mEq/L mEq/L (97-110) Carbon Dioxide 24 mEq/l mEq/l (22-31) Anion Gap 11 mEq/L mEq/L (6-14) BUN 19 mg/dL mg/dL (7-23) Creatinine 0.7 mg/dL mg/dL (0.6-1.0) Estimated GFR > 60 Glucose 110 mg/dL H mg/dL (70-100) Calcium 9.3 mg/dL mg/dL (8.5-10.4) Total Bilirubin 0.3 mg/dL mg/dL (0.1-1.4) Conjugated Bilirubin 0.2 mg/dL mg/dL (0.0-0.5) Unconjugated Bilirubin 0.1 mg/dL mg/dL (0.0-1.1) AST 28 IU/L IU/L (14-46) ALT 35 IU/L IU/L (9-52) Alkaline Phosphatase 171 IU/L H IU/L (38-126) Total Protein 7.3 g/dL g/dL (6.3-8.2) Albumin 4.4 g/dL g/dL (3.5-5.0) Lipase 238 IU/L IU/L (23-300) 05/22/18 19:00 WBC RBC Hgb Hct MCV MCH MCHC RDW Plt Count MPV Neut % (Auto) Lymph % (Auto) [place] % (Auto) Eos % (Auto) Baso % (Auto) Nucleat RBC Rel Count Absolute Neuts (auto) Absolute Lymphs (auto) Absolute Monos (auto) Absolute Eos (auto) Absolute Basos (auto) Absolute Nucleated RBC Immature Gran % Immature Gran # RBC/WBC/PLT Morphology Platelet Estimate PT INR APTT VBG Lactic Acid 2.2 mmol/L H mmol/L (0.7-2.1) Sodium Potassium Chloride Carbon Dioxide Anion Gap BUN Creatinine Estimated GFR Glucose Calcium Total Bilirubin Conjugated Bilirubin Unconjugated Bilirubin AST ALT Alkaline Phosphatase Total Protein Albumin Lipase Medications Given: Acetaminophen (Tylenol) 650 mg PO Q4HRS PRN PRN Reason: Pain, Mild/Fever, Can Take PO Stop: 11/18/18 20:21 Last Admin: 05/22/18 20:32 Dose: 650 mg Levofloxacin/Dextrose (Levaquin 750 Mg (Premix)) 150 mls @ 100 mls/hr IV EDNOW ONE PRN Reason: Protocol Stop: 05/22/18 21:07 Last Admin: 05/22/18 19:48 Dose: 150 mls Discontinued Medications Sodium Chloride (Ns) 1,500 mls @ 3,000 mls/hr 30 ml/kg infuse over 30 min ( 1500 ml) IV EDNOW ONE PRN Reason: Protocol Stop: 05/22/18 19:37 Last Admin: 05/22/18 19:15 Dose: 1,500 mls Ondansetron HCl (Zofran) 4 mg IVP EDNOW ONE Stop: 05/22/18 19:09 Last Admin: 05/22/18 19:24 Dose: 4 mg Departure - Departure Disposition: [facility] Clinical Impression: Influenza A Pneumonia Qualifiers: Pneumonia type: due to unspecified organism Laterality: left Lung location: lower lobe of lung Qualified Code(s): J18.1 - Lobar pneumonia, unspecified organism Sepsis Qualifiers: Sepsis type: sepsis due to unspecified organism Qualified Code(s): A41.9 - Sepsis, unspecified organism Condition: Fair
[2018-05-22 19:30] LABS: PLATELET COUNT 477 10^3/uL (150-400)
[2018-05-22 19:38] LABS: INR 0.97 (0.83-1.16); PROTIME(PATIENT) 12.5 SEC (12.0-15.0)
[2018-05-22] MEDS ORDERED: oxyCODONE IR 5 MG TAB PO PRN (20:22)
[2018-05-22] MEDS ORDERED: HYDROmorphONE/DILAUDID 1 MG/ML INJ IVP PRN (20:22)
[2018-05-22] MEDS ORDERED: HYDROCODONE/APAP 5/325 TAB PO PRN (20:22)
[2018-05-22] MEDS ORDERED: ONDANSETRON 4 MG/2 ML VIAL IVP PRN (20:22)
[2018-05-22] MEDS ORDERED: ONDANSETRON DISINTEGRATING 4 MG TAB PO PRN (20:22)
[2018-05-22] MEDS ORDERED: ALBUTEROL 60 PUFFS/8 GM MDI IH PRN (20:22)
[2018-05-22] MEDS ORDERED: PROMETHAZINE HCL 25 MG/ML INJ IVP PRN (20:22)
[2018-05-22] MEDS ORDERED: TRIAMCINOLONE 0.1% 15 GM CRTUBE TP PRN (20:27)
[2018-05-22] MEDS ORDERED: traMADol 50 MG TAB PO PRN (20:27)
[2018-05-22] MEDS ORDERED: ACETAMINOPHEN 325 MG TAB ONE (20:31)
[2018-05-22] MEDS: ACETAMINOPHEN 325 MG TAB PO PRN (20:32)
[2018-05-22] MEDS: NS 1,000 ML IV SCH (21:25)
[2018-05-22] MEDS ORDERED: HYDROCODONE/HOMATROPINE HYCODAN 5 ML UDL PO PRN (21:38)
--- NOTE | 2018-05-22 22:02 | PDGENHP ---
History and Physical - Chief Complaint sob, cough - History of Present Illness 78 yo F with recent diagnosis of flu on 05/16 who notes she was initially improving from that illness until the last couple of days when she developed worsening cough associated with nausea and vomiting. She states that today it got much worse and hence she came to the ER. She notes she has been doing poorly in general this winter, starting with a right TKA that was performed in [place] at [facility], her stay was complicated and she notes she was sent home from that surgery feeling poorly and has had issues with the knee since then, was treated in this hospital for possible wound infection. She has had some issues with abdominal pain and nausea on and off since surgery, she thought that might be related to her pain killers and muscle relaxants and stopped all of those about 3 weeks ago. Since then she has had issues with a change in her sense of smell and taste and poor appetite. She denies other changes in her medications. She feels fairly weak which is very unusual for her, she did manage to go to the gym today however. She has not had fever today as far as she knows. Her cough has been productive of yellow mucus. History Information - Allergies/Home Medication List Allergies/Adverse Reactions: meloxicam Allergy (Verified 05/22/18 18:47) scallops Allergy (Verified 05/22/18 20:08) Vomiting Home Medications: Estradiol 0.5 mg PO DAILY 03/17/18 [Last Taken 05/22/18] Levothyroxine Sodium 50 mcg PO DAILY@06 03/17/18 [Last Taken 05/22/18] traMADol [Ultram 50 mg (*)] 50 mg PO HS PRN 05/16/18 [Last Taken 05/21/18] Aspirin EC [Aspirin EC 81 mg (*)] 81 mg PO DAILY 05/22/18 [Last Taken 05/22/18] Cholecalciferol Vit D3 [Vitamin D3 (*)] 2,000 units PO DAILY 05/22/18 [Last Taken 05/22/18] Herbals/Supplements -Info Only 1 ea PO DAILY 05/22/18 [Last Taken 05/19/18] Triamcinolone 0.1% [Triamcinolone 0.1% Cream (*)] 1 lindsay TD DAILY PRN 05/22/18 [ Last Taken Unknown] I have personally reviewed and updated: family history, medical history, social history, surgical history - Past Medical History arthritis Additional medical history: Hypothyroid. post operative anemia - Surgical History Additional surgical history: L TKA 03/12/18 - Family History Positive for: cancer, CAD - Social History Smoking Status: Never smoked Alcohol Use: Rarely Drug Use: None Additional social history: lives independently, has 2 sons one here with her today, the other is a surgeon in [place] Review of Systems Review of Systems: ROS: 10pt was reviewed & negative except for what was stated in HPI & below Physical Exam Physical Exam: Temp Pulse Resp BP Pulse Ox 37.8 C 102 H 16 139/78 H 94 05/22/18 21:17 05/22/18 21:17 05/22/18 21:17 05/22/18 21:17 05/22/18 21:17 Constitutional: appears nourished, uncomfortable Eyes: PERRL, anicteric sclera Ears, Nose, Mouth, Throat: moist mucous membranes, hearing normal Cardiovascular: no murmur, rub, or gallop, tachycardia, No edema Respiratory: reduced air movement, inspiratory crackles, bronchial breath sounds , respiratory distress Gastrointestinal: normoactive bowel sounds, soft, non-tender abdomen Genitourinary: no bladder tenderness Skin: warm, normal color Musculoskeletal: full muscle strength Neurologic: AAOx3 Psychiatric: interacting appropriately, not anxious Lab Data & Imaging Review 05/22/18 19:00 05/22/18 19:00 WBC 8.23 10^3/uL (3.80-9.50) 05/22/18 19:00 RBC 4.86 10^6/uL (4.18-5.33) 05/22/18 19:00 Hgb 12.5 g/dL (12.6-16.3) L 05/22/18 19:00 Hct 39.8 % (38.0-47.0) 05/22/18 19:00 MCV 81.9 fL (81.5-99.8) 05/22/18 19:00 MCH 25.7 pg (27.9-34.1) L 05/22/18 19:00 MCHC 31.4 g/dL (32.4-36.7) L 05/22/18 19:00 RDW 14.0 % (11.5-15.2) 05/22/18 19:00 Plt Count 477 10^3/uL (150-400) H 05/22/18 19:00 MPV 9.0 fL (8.7-11.7) 05/22/18 19:00 Neut % (Auto) 88.2 % (39.3-74.2) H 05/22/18 19:00 Lymph % (Auto) 6.1 % (15.0-45.0) L 05/22/18 19:00 [place] % (Auto) 5.0 % (4.5-13.0) 05/22/18 19:00 Eos % (Auto) 0.4 % (0.6-7.6) L 05/22/18 19:00 Baso % (Auto) 0.1 % (0.3-1.7) L 05/22/18 19:00 Nucleat RBC Rel Count 0.0 % (0.0-0.2) 05/22/18 19:00 Absolute Neuts (auto) 7.26 10^3/uL (1.70-6.50) H 05/22/18 19:00 Absolute Lymphs (auto) 0.50 10^3/uL (1.00-3.00) L 05/22/18 19:00 Absolute Monos (auto) 0.41 10^3/uL (0.30-0.80) 05/22/18 19:00 Absolute Eos (auto) 0.03 10^3/uL (0.03-0.40) 05/22/18 19:00 Absolute Basos (auto) 0.01 10^3/uL (0.02-0.10) L 05/22/18 19:00 Absolute Nucleated RBC 0.00 10^3/uL (0-0.01) 05/22/18 19:00 Immature Gran % 0.2 % (0.0-1.1) 05/22/18 19:00 Immature Gran # 0.02 10^3/uL (0.00-0.10) 05/22/18 19:00 RBC/WBC/PLT Morphology TNP 05/22/18 19:00 Platelet Estimate TNP 05/22/18 19:00 PT 12.5 SEC (12.0-15.0) 05/22/18 19:00 INR 0.97 (0.83-1.16) 05/22/18 19:00 APTT 25.7 SEC (23.0-38.0) 05/22/18 19:00 VBG Lactic Acid 1.7 mmol/L (0.7-2.1) 05/22/18 20:20 Sodium 133 mEq/L (135-145) L 05/22/18 19:00 Potassium 3.9 mEq/L (3.5-5.2) 05/22/18 19:00 Chloride 98 mEq/L (97-110) 05/22/18 19:00 Carbon Dioxide 24 mEq/l (22-31) 05/22/18 19:00 Anion Gap 11 mEq/L (6-14) 05/22/18 19:00 BUN 19 mg/dL (7-23) 05/22/18 19:00 Creatinine 0.7 mg/dL (0.6-1.0) 05/22/18 19:00 Estimated GFR > 60 05/22/18 19:00 Glucose 110 mg/dL (70-100) H 05/22/18 19:00 Calcium 9.3 mg/dL (8.5-10.4) 05/22/18 19:00 Total Bilirubin 0.3 mg/dL (0.1-1.4) 05/22/18 19:00 Conjugated Bilirubin 0.2 mg/dL (0.0-0.5) 05/22/18 19:00 Unconjugated Bilirubin 0.1 mg/dL (0.0-1.1) 05/22/18 19:00 AST 28 IU/L (14-46) 05/22/18 19:00 ALT 35 IU/L (9-52) 05/22/18 19:00 Alkaline Phosphatase 171 IU/L (38-126) H 05/22/18 19:00 Total Protein 7.3 g/dL (6.3-8.2) 05/22/18 19:00 Albumin 4.4 g/dL (3.5-5.0) 05/22/18 19:00 Lipase 238 IU/L (23-300) 05/22/18 19:00 Urine Color PALE YELLOW 05/22/18 19:55 Urine Appearance CLEAR 05/22/18 19:55 Urine pH 6.0 (5.0-7.5) 05/22/18 19:55 Ur Specific [place] 1.012 (1.002-1.030) 05/22/18 19:55 Urine Protein NEGATIVE (NEGATIVE) 05/22/18 19:55 Urine Ketones NEGATIVE (NEGATIVE) 05/22/18 19:55 Urine Blood NEGATIVE (NEGATIVE) 05/22/18 19:55 Urine Nitrate NEGATIVE (NEGATIVE) 05/22/18 19:55 Urine Bilirubin NEGATIVE (NEGATIVE) 05/22/18 19:55 Urine Urobilinogen NEGATIVE EU (0.2-1.0) 05/22/18 19:55 Ur Leukocyte Esterase NEGATIVE (NEGATIVE) 05/22/18 19:55 Urine RBC 1-3 /hpf (0-3) 05/22/18 19:55 Urine WBC 1-3 /hpf (0-3) 05/22/18 19:55 Ur Epithelial Cells TRACE /lpf (NONE-1+) 05/22/18 19:55 Urine Glucose NEGATIVE (NEGATIVE) 05/22/18 19:55 Visualized and Interpreted Chest x-ray results: Yes Chest X-Ray results: infiltrate (left lower lobe) Assessment & Plan Assessment: Influenza A (Acute) Pneumonia (Acute) Sepsis (Acute) 78 yo F with recent influenza A presenting now with LLL PNA # LLL PNA: post viral pna in patient without risk factors for nosocomial infection, will start on ctx/azitho, cultures pending # sepsis: with fever, tachycardia in ER in setting of pna and secondary to same , HD stable, lactate initially mildly elevated at 2.2 but now 1.7 s/p fluids # influenza A: diagnosed on 05/16, likely led to susceptibility to above # right TKA: with complicated recovery and prior post operative wound infection , still has effusion present and tenderness, will get pt/ot to eval # n/v: an acute on chronic component to this, will monitor, currently seems resolved. LFTs wnl, abd exam benign. # post operative anemia: resolved # IP status, patient will likely require > 48 hours stay for eval/mgmt of above Patient new to my care. Further hx obtained from patients son present at bedside , care plan reviewed with ER doctor as above.
[2018-05-22] MEDS: IPRATROPIUM/ALBUTEROL 3 ML DEYVIAL IH SCH (23:23)
[2018-05-23] MEDS: LEVOTHYROXINE 50 MCG TAB PO SCH (05:22)
[2018-05-23] MEDS: NS 1,000 ML IV SCH (05:24)
[2018-05-23] MEDS: IPRATROPIUM/ALBUTEROL 3 ML DEYVIAL IH SCH ×4 (05:34→21:05)
[2018-05-23 06:15] LABS: PLATELET COUNT 363 10^3/uL (150-400)
[2018-05-23] MEDS: ESTRADIOL 0.5 MG TAB PO SCH (08:35)
[2018-05-23] MEDS: ASPIRIN EC 81 MG TAB PO SCH (08:35)
[2018-05-23] MEDS: CHOLECALCIFEROL VIT D3 2,000 UNITS TAB/CAP PO SCH (08:35)
[2018-05-23] MEDS: AZITHROMYCIN IV 500 MG in NS 250 ML IV SCH (09:36)
--- NOTE | 2018-05-23 12:29 | PDMN ---
Medical Necessity Medical necessity: Pt meets IP criteria per MD & MCG M-160; est los >2 mn for eval/tx of sepsis w/tachycardia in the setting of LLL pneumonia; requiring further monitoring & IV abx; hx recent influenza A, recent TKA w/complicated recovery; per H&P & order 05/22/18
[2018-05-23] MEDS: ACETAMINOPHEN 325 MG TAB PO PRN (14:39)
--- NOTE | 2018-05-23 15:23 | HOSPPROG ---
Hospitalist Progress Note Assessment/Plan: 78 yo female with recent treated Influenza A admitted with post viral LLL pneumonia and possible sepsis. # LLL PNA: post viral pna in patient without risk factors for nosocomial infection, cont ctx/azitho, cultures pending -Start Prednisone # sepsis (resolved): with fever, tachycardia in ER in setting of pna and secondary to same, HD stable, lactate initially mildly elevated at 2.2 but now 1.7 s/p fluids -No additional fluids needed # influenza A: diagnosed on 05/16, likely led to susceptibility to above # right TKA: with complicated recovery and prior post operative wound infection , still has effusion present and tenderness, pending PT/OT eval #Generalized Weakness: pending PT/OT eval # n/v (resolved): an acute on chronic component to this, will monitor, currently seems resolved. LFTs wnl, abd exam benign. # post operative anemia: resolved # cont IP status, patient will likely require > 48 hours stay for eval/mgmt of above DVT proph: Lovenox Patient new to my care. Subjective: feels better but still with cough and sob. afebrile Objective: Vital Signs Temp Pulse Resp BP Pulse Ox 36.9 C 97 16 131/66 H 96 05/23/18 11:53 05/23/18 11:53 05/23/18 11:53 05/23/18 11:53 05/23/18 11:53 Laboratory Results 05/23/18 05:15 05/23/18 05:15 05/22/18 05/23/18 05/24/18 05:59 05:59 05:59 Intake Total 1437 500 Output Total 750 700 Balance 687 -200 PT 12.5 SEC (12.0-15.0) 05/22/18 19:00 INR 0.97 (0.83-1.16) 05/22/18 19:00 - Physical Exam Constitutional: no apparent distress Eyes: PERRL, EOMI Ears, Nose, Mouth, Throat: moist mucous membranes, hearing normal Cardiovascular: regular rate and rhythym, No edema Respiratory: no respiratory distress, no rales or rhonchi, expiratory wheeze Gastrointestinal: normoactive bowel sounds, soft, non-tender abdomen Skin: warm Musculoskeletal: generalized weakness Neurologic: AAOx3 Psychiatric: interacting appropriately, not anxious, not encephalopathic Lymph, Heme, Immunologic: No petechiae ICD10 Worksheet Patient Problems: Problems Problem Status Onset Influenza A Acute Pneumonia Acute Sepsis Acute Cellulitis Acute
--- NOTE | 2018-05-23 16:22 | ASMTCMCOM ---
CM Note CM Note Notes: Pt is a 78 y/o female admitted for shortness of breath and a cough. CM spoke to pts nurse. Nurse states that pt should be independent at time of d/c. Therapies have been ordered and awaiting recommendations. Needs are TBD at this time. CM to follow. Plan: TBD Date Signed: 05/23/2018 04:22 PM Electronically Signed By:VANNESSA Diaz
[2018-05-23] MEDS: predniSONE 20 MG TAB PO SCH (16:44)
[2018-05-23] MEDS: ENOXAPARIN 40 MG/0.4 ML SYR SC SCH (16:45)
[2018-05-24] MEDS: IPRATROPIUM/ALBUTEROL 3 ML DEYVIAL IH SCH ×3 (05:30→16:34)
[2018-05-24] MEDS: LEVOTHYROXINE 50 MCG TAB PO SCH (05:47)
[2018-05-24 06:00] LABS: PLATELET COUNT 352 10^3/uL (150-400)
[2018-05-24] MEDS: ENOXAPARIN 40 MG/0.4 ML SYR SC SCH (08:25)
[2018-05-24] MEDS: ASPIRIN EC 81 MG TAB PO SCH (08:26)
[2018-05-24] MEDS: predniSONE 20 MG TAB PO SCH (08:26)
[2018-05-24] MEDS: ESTRADIOL 0.5 MG TAB PO SCH (08:26)
[2018-05-24] MEDS: CHOLECALCIFEROL VIT D3 2,000 UNITS TAB/CAP PO SCH (08:26)
[2018-05-24] MEDS: AZITHROMYCIN IV 500 MG in NS 250 ML IV SCH (08:30)
[2018-05-24 12:13] VITALS: BP 138/70
--- NOTE | 2018-05-24 14:37 | ASMTLACE ---
LACE Length of stay for Answers: 1 day current admission Acuity / Level of Answers: Yes Care: Did the patient have an inpatient admission? Comorbidities - select Answers: Cerebrovascular disease all that apply (CVA, TIA, aneurysms, vasc ular dementia) Other Notes: Hypothyroid # of Emergency department Answers: 3-4 visits in the last 6 months Score: 9 Date Signed: 05/24/2018 02:36 PM Electronically Signed By:Earlene Dover RN
--- NOTE | 2018-05-24 14:39 | ASMTCMCOM ---
CM Note CM Note Notes: Reviewed therapy notes, pt cleared by PT/OT for home. Has a local son, anticipate will dc home when medically stable. CM available for any changes. DC Plan: Independent Date Signed: 05/24/2018 02:38 PM Electronically Signed By:Earlene Dover RN
--- NOTE | 2018-05-24 15:10 | PDDCSUM ---
Discharge Summary Discharge Summary: 78 yo female with recent treated Influenza A admitted with post viral LLL pneumonia and possible sepsis. Admitted and treated accordingly. Started IV abx. Started Prednisone. She is back to RA. Feels significantly better. Had diarrhea overnight but this is actually improved today. A stool study has been obtained but is negative thus far. This will need to be followed. She is being transitioned from IV abx to Doxycycline x 5 more days. She will cont with Prednisone with short taper. DDx: # LLL PNA: post viral pna in patient without risk factors for nosocomial infection # sepsis (resolved): with fever, tachycardia in ER in setting of pna and secondary to same, HD stable, lactate initially mildly elevated at 2.2 but now 1.7 s/p fluids -No additional fluids needed # influenza A: diagnosed on 05/16, likely led to susceptibility to above # right TKA: with complicated recovery and prior post operative wound infection , still has effusion present and tenderness, pending PT/OT eval #Generalized Weakness: Pt/OT cleared for d/c home. doing better # n/v (resolved): an acute on chronic component to this, will monitor, currently seems resolved. LFTs wnl, abd exam benign. # post operative anemia: resolved Exam: NAD AAOX3 RRR RHONCHI, IMPROVED S/NT/ND NO EDEMA MEDS: SEE MED REC TOTAL TIME SPENT ON D/C IS 35 MINS
== END 2018-05-24 16:44 | disposition home or self-care (01) | DRG 871 ==
LOC: F3E 21:13
PROVIDERS: ADMIT Internal Medicine; ATTEND Internal Medicine
DX: A41.9 Sepsis, unspecified organism (principal); J18.1 Lobar pneumonia, unspecified organism; D62 Acute posthemorrhagic anemia; E03.9 Hypothyroidism, unspecified; Z96.651 Presence of right artificial knee joint
CPT/HCPCS: 87449-90; 96365; 96366; 97161-GP; J0456; J0696; J1650; J1956; J2405; J7512

== ENCOUNTER → 2018-06-20 | Outpatient (CLI) | payer OTHER, MEDICARE | LOC: BMCIMAGING 14:43 | PROVIDERS: ATTEND Internal Medicine | DX: Z12.31 Encounter for screening mammogram for malignant neoplasm of breast (principal) ==